=== PATIENT | male | born 1945 | race Caucasian/White ===

== ENCOUNTER 2017-07-16 11:26 | Observation (INO) | payer OTHER ==
[~2017-07-16] VITALS: Ht 172.7 cm; Wt 91.2 kg
--- NOTE | 2017-07-16 11:26 | NUR ---
PT TO ROOM FOR TREATMENT
--- NOTE | 2017-07-16 11:45 | NUR ---
IV INITATED AND LABS COLLECTED. MD AT BEDSIDE. PT REPORTS CHEST PRESSURE "FOR AWHILE NOW" IN THE MID TO LEFT CHEST AREA. PT DENIES ANY SOB, NAUSEA/VOIMITING AT THIS TIME. PT WAS SEEN IN [place] [facility] AND WAS TOLD HE HAS ANXIETY. PT HAS HAD NUMEROUS FAMILY MEMBERS PASS AWARE FROM CARDIAC ISSUES IN THE PAST 2 YEARS. PT TEARFUL IN ROOM AND KEEPS LOOKING AT MANAGER CULINARY NERVOUSLY. PT AWARE OF PLAN OF CARE AND WAIT TIME. LS CLEAR AND PT DENIES ANY PAIN AT THIS TIME. CALL LILLY WITHIN REACH. WILL CONTINUE TO MONITOR.
[2017-07-16 11:58] LABS: HEMATOCRIT 50.1 % (39.0-50.0); HEMOGLOBIN 17.3 g/dl (14.0-18.0); IMMATURE GRANULOCYTES 0.4 % (0.0-1.0); MEAN CELL VOLUME 85.9 fL CALC (80.0-100.0); MEAN CORPUSCULAR HGB 29.7 pG CALC (26.0-32.0); MEAN CORPUSCULAR HGB CONC 34.5 g/L CALC (32.0-36.0); NEUT# 7.39 thou/uL (1.82-7.42); RED BLOOD COUNT 5.83 mill/uL (4.70-6.10); RED CELL DISTRI WIDTH 13.5 % (11.5-15.5)
[2017-07-16] MEDS ORDERED: ASPIRIN81 MG PO (12:00)
[2017-07-16] MEDS ORDERED: LISINOPRIL/HYDR1 TA1 PO (12:01)
[2017-07-16] MEDS ORDERED: ATORVASTATIN CA10 MG PO (12:02)
[2017-07-16] MEDS ORDERED: AMLODIPINE5 MG PO (12:04)
[2017-07-16] MEDS ORDERED: MULTI VIT PO (12:05)
[2017-07-16] MEDS ORDERED: POTASSIMIN75 MG PO (12:05)
[2017-07-16] MEDS ORDERED: DIPHENHYDRAM25 MG PO (12:06)
[2017-07-16] MEDS ORDERED: FISH OIL1000 MG PO (12:06)
[2017-07-16 12:14] LABS: ALBUMIN 4.7 g/dL (3.2-5.0); ALKALINE PHOSPHATASE 77 u/l (38-126); ANION GAP 15 (6-22 (CALC)); BILIRUBIN, TOTAL 0.7 mg/dL (0.0-1.4); BUN 17 mg/dL (8-23); BUN/CREATININE RATIO 19 (12-20 (CALC)); CALCIUM 11.8 mg/dL (8.4-10.2); CARBON DIOXIDE 22 mmol/l (22-30); CHLORIDE 107 mmol/l (95-108); CREATININE 0.9 mg/dL (0.7-1.3); GFR > 60 ML/MIN (>=60 (CALC)); GFR FOR AFR.AMER. > 60 ML/MIN (>=60 (CALC)); GLUCOSE 113 mg/dL (82-115); POTASSIUM 3.6 mmol/l (3.5-5.1); SGOT/AST 44 u/l (19-48); SGPT/ALT 51 u/l (11-66); SODIUM 140 mmol/l (137-146); TOTAL PROTEIN 7.8 g/dL (6.3-8.2)
[2017-07-16 12:25] LABS: MYOGLOBIN 34 ng/mL (0 - 121)
--- NOTE | 2017-07-16 12:40 | NUR ---
PT RESTING COMFORTABLY IN STRETCHER IN NAD. VSS. PT DENIES ANY PAIN OR NEEDS AT THIS TIME. CALL VIJAYA MUNGUIA. WILL CONTINUE TO MONITOR.
--- NOTE | 2017-07-16 12:45 | NUR ---
AT [facility] TO DISCUSS RESULTS AND ADMISSION.
--- NOTE | 2017-07-16 12:59 | NUR ---
SBAR PRINTED TO FLOOR
--- NOTE | 2017-07-16 13:10 | NUR ---
REPORT CALLED TO LATOYA JUNG.
--- NOTE | 2017-07-16 13:24 | NUR ---
TO 278 VIA W/C. N/C AT THIS TIME
--- NOTE | 2017-07-16 13:24 | NUR ---
Admission Note Report Given to: LATOYA JUNG Transported by: X Wheelchair Stretcher Transported with: X Nurse Transporter X Patent IV O2 X [employer] Judge
--- NOTE | 2017-07-16 13:25 | NUR ---
FROM ER VIA WHEELCHAIR ACCOMPANIED BY ZOE KLEIN. AMBULATED TO BATHROOM WITH STEADY GAIT. RESPS EVEN AND UNLABORED ON ROOM AIR, TELE MONITOR IN PLACE. DENIES PAIN OR DISCOMFORT. ORIENTED TO ROOM AND CALL SYSTEM. SAFETY PRECAUTIONS REINFORCED. BED IN LOWEST POSITION WITH WHEELS LOCKED. CALL LIGHT WITHIN REACH. WILL CONTINUE TO MONITOR.
[2017-07-16 13:38] VITALS: BP 138/87
[2017-07-16 13:52] LABS: URINE BILIRUBIN - DIPSTICK NEGATIVE (NEGATIVE); URINE BLOOD DIPSTICK NEGATIVE (NEGATIVE); URINE COLOR YELLOW; URINE GLUCOSE - DIPSTICK NEGATIVE (NEGATIVE); URINE KETONE NEGATIVE (NEGATIVE); URINE LEUK ESTERASE NEGATIVE (NEGATIVE); URINE NITRITE - DIPSTICK NEGATIVE (Negative); URINE PROTEIN - DIPSTICK NEGATIVE (NEG-TRACE); URINE SPECIFIC GRAVITY 1.025; URINE UROBILINOGEN - DIPSTICK 0.2 E.U./dL (0.2)
[2017-07-16 13:56] LABS: URINE CLARITY CLEAR
--- NOTE | 2017-07-16 16:48 | NUR ---
RESTING IN SEMI FOWLERS, RESPS EVEN AND UNLABORED ON ROOM AIR, TELE MONITOR IN PLACE. MEDICATED WITH XANAX PO FOR C/O ANXIETY. CALL LIGHT WITHIN REACH. WILL CONTINUE TO MONITOR.
[2017-07-16 16:52] LABS: CHOLESTEROL HDL RATIO 3.6 (<4.4 (CALC))
--- NOTE | 2017-07-16 17:45 | NUR ---
DR FITCH IN TO SEE PT, NEW ORDERS RECEIVED.
[2017-07-16 18:30] VITALS: BP 139/79
--- NOTE | 2017-07-16 20:45 | NUR ---
PT RESTING IN SUPINE POSITION WITH EYES CLOSED;RESPIRATIONS EVEN AND UNLABORED ON RA;WOKE PT TO COMPLETE ASSESSMENT;PT VOICES NO COMPLAINTS OF PAIN OR DISCOMFORTS AT THIS TIME;TELE MONITOR IN PLACE;#20G TO LAC FLUSHED AND PATENT;SKIN INTACT;PEDAL PULSES STRONG ON PALPATION;PT DENIES ANY NEEDS AND IS EDUCATED TO CALL FOR ASSISTANCE IF NEEDED;CALL LIGHT IN REACH;WILL CONTINUE TO MONITOR
[2017-07-16 23:52] VITALS: BP 132/79
--- NOTE | 2017-07-17 00:35 | NUR ---
LAB AT BEDSIDE;PT VOICES NO COMPLAINTS OF PAIN OR DISCOMFORTS;RESPIRATIONS EVEN AND UNLABORED ON RA;TELE MONITOR IN PLACE;PT RE-EDUCATED TO CALL FOR ASSISTANCE IF NEEDED;CALL LIGHT IN REACH;WILL CONTINUE TO MONITOR
--- NOTE | 2017-07-17 05:20 | NUR ---
PT APPEARS TO BE SLEEPING IN SUPINE POSITION BUT WAKES EASILY;PT DENIES ANY PAIN OR DISCOMFORTS;RESPIRATIONS EVEN AND UNLABORED ON RA;TELE MONITOR IN PLACE;CALL LIGHT IN REACH;WILL CONTINUE TO MONITOR
[2017-07-17 05:25] VITALS: BP 141/85
[2017-07-17 06:49] LABS: ANION GAP 17 (6-22 (CALC)); BUN 15 mg/dL (8-23); BUN/CREATININE RATIO 14 (12-20 (CALC)); CALCIUM 10.2 mg/dL (8.4-10.2); CARBON DIOXIDE 25 mmol/l (22-30); CHLORIDE 104 mmol/l (95-108); GFR > 60 ML/MIN (>=60 (CALC)); GFR FOR AFR.AMER. > 60 ML/MIN (>=60 (CALC)); GLUCOSE 102 mg/dL (82-115); MAGNESIUM 1.8 mg/dL (1.6-2.3); POTASSIUM 3.6 mmol/l (3.5-5.1); SODIUM 142 mmol/l (137-146)
--- NOTE | 2017-07-17 07:00 | NUR ---
RECEIVED BEDSIDE REPORT FROM [facility]. AMBULATING TO BATHROOM WITH STEADY GAIT. RESPS EVEN AND UNLABORED ON ROOM AIR, TELE MONITOR IN PLACE. DENIES PAIN OR DISCOMFORT. PLAN OF CARE DISCUSSED. SAFETY PRECAUTIONS REINFORCED. BED IN LOWEST POSITION WITH WHEELS LOCKED. CALL LIGHT WITHIN REACH. ENCOURAGED PT TO CALL FOR ANY NEEDS.
[2017-07-17 07:41] VITALS: BP 138/85
--- NOTE | 2017-07-17 08:20 | NUR ---
RESTING IN SEMI FOWLERS. REFUSED TO EAT BREAKFAST. REPORTS HE "IS TOO BUSY WORRYING ABOUT HOW HE IS GOING TO PAY THIS BILL, STARTING TO MAKE HIS STOMACH UPSET." MEDICATED WITH XANAX PO ANXIETY. WILL CONTINUE TO MONITOR. CALL LIGHT WITHIN REACH.
--- NOTE | 2017-07-17 11:15 | NUR ---
DR FITCH IN WITH PT, NEW ORDERS RECEIVED.
[2017-07-17 11:30] VITALS: BP 130/77
[2017-07-17] MEDS ORDERED: LEXAPRO10 MG PO (11:37)
[2017-07-17] MEDS ORDERED: ALPRAZOLAM0.25 MG PO (11:37)
--- NOTE | 2017-07-17 12:30 | NUR ---
Discharge instructions given. Patient verbalizes understanding of same. Discharged in stable condition via Wheelchair to Home with friend. All belongings sent with pt.
[2017-07-17] MEDS ORDERED: CELEXA20 MG PO (21:26)
== END 2017-07-17 12:30 | disposition home or self-care (01) | DRG 310 ==
LOC: ED 11:26 → ED-I 12:38 → ED 12:57 → MS2 12:58
PROVIDERS: Emergency Medicine; Nurse Practitioner Family; ADMIT Internal Medicine; ATTEND Internal Medicine
DX: R00.2 Palpitations (principal); E78.5 Hyperlipidemia, unspecified; R07.9 Chest pain, unspecified; I10 Essential (primary) hypertension; K22.70 Barrett's esophagus without dysplasia; F32.9 Major depressive disorder, single episode, unspecified; Z63.4 Disappearance and death of family member

== ENCOUNTER 2019-02-06 17:29 | Emergency (ER) | payer OTHER ==
[~2019-02-06] VITALS: Ht 172.7 cm; Wt 91.0 kg
[~2019-02-06 17:29] MED LIST: ALPRAZOLAM0.25 MG PO; AMLODIPINE5 MG PO; ASPIRIN81 MG PO; ATORVASTATIN CA10 MG PO; CELEXA20 MG PO; DIPHENHYDRAM25 MG PO; FISH OIL1000 MG PO; LEXAPRO10 MG PO; LISINOPRIL/HYDR1 TA1 PO; MULTI VIT PO; POTASSIMIN75 MG PO
[2019-02-06 18:20] LABS: HEMATOCRIT 44.8 % (39.0-50.0); HEMOGLOBIN 15.4 g/dl (14.0-18.0); IMMATURE GRANULOCYTES 0.6 % (0.0-5.0); MEAN CELL VOLUME 84.7 fL CALC (80.0-100.0); MEAN CORPUSCULAR HGB 29.1 pG CALC (26.0-32.0); MEAN CORPUSCULAR HGB CONC 34.4 g/L CALC (32.0-36.0); NEUT# 10.16 thou/uL (1.82-7.42); RED BLOOD COUNT 5.29 mill/uL (4.70-6.10); RED CELL DISTRI WIDTH 14.5 % (11.5-15.5)
[2019-02-06 18:43] LABS: ALBUMIN 4.3 g/dL (3.2-5.0); ALKALINE PHOSPHATASE 112 u/l (38-126); BUN 18 mg/dL (8-23); BUN/CREATININE RATIO 17 (12-20 (CALC)); CARBON DIOXIDE 21 mmol/l (22-30); CHLORIDE 97 mmol/l (95-108); CREATININE 1.1 mg/dL (0.7-1.3); GFR > 60 ML/MIN (>=60 (CALC)); GFR FOR AFR.AMER. > 60 ML/MIN (>=60 (CALC)); LIPASE 41 u/l (23-300); POTASSIUM 4.1 mmol/l (3.5-5.1); TOTAL PROTEIN 8.1 g/dL (6.3-8.2)
[2019-02-06 18:48] LABS: ANION GAP 20 (6-22 (CALC)); BILIRUBIN, TOTAL 2.3 mg/dL (0.0-1.4); SGOT/AST 141 u/l (19-48); SODIUM 134 mmol/l (137-146)
[2019-02-06 19:24] LABS: URINE BILIRUBIN - DIPSTICK NEGATIVE (NEGATIVE); URINE BLOOD DIPSTICK NEGATIVE (NEGATIVE); URINE COLOR YELLOW; URINE GLUCOSE - DIPSTICK NEGATIVE (NEGATIVE); URINE KETONE NEGATIVE (NEGATIVE); URINE LEUK ESTERASE NEGATIVE (NEGATIVE); URINE NITRITE - DIPSTICK NEGATIVE (Negative); URINE PH 6.5 (4.5-8.0); URINE PROTEIN - DIPSTICK TRACE mg/dL (NEG-TRACE); URINE UROBILINOGEN - DIPSTICK 0.2 E.U./dL (0.2)
[2019-02-06 22:11] VITALS: BP 138/79
== END 2019-02-06 22:04 | disposition short-term general hospital (02) | DRG 392 ==
LOC: ED 17:29
PROVIDERS: Family Medicine
DX: R10.11 Right upper quadrant pain (principal); R10.12 Left upper quadrant pain; N13.2 Hydronephrosis with renal and ureteral calculous obstruction; K82.9 Disease of gallbladder, unspecified; I10 Essential (primary) hypertension
CPT/HCPCS: Q9967

== ENCOUNTER 2019-02-13 11:08 | Emergency (ER) | payer OTHER ==
[~2019-02-13] VITALS: Ht 172.7 cm; Wt 90.9 kg
[2019-02-13 11:46] LABS: HEMATOCRIT 39.3 % (39.0-50.0); IMMATURE GRANULOCYTES 4.7 % (0.0-5.0); MEAN CELL VOLUME 87.3 fL CALC (80.0-100.0); MEAN CORPUSCULAR HGB 28.9 pG CALC (26.0-32.0); MEAN CORPUSCULAR HGB CONC 33.1 g/L CALC (32.0-36.0); NEUT# 6.8 thou/uL (1.82-7.42); RED BLOOD COUNT 4.5 mill/uL (4.70-6.10); RED CELL DISTRI WIDTH 14.6 % (11.5-15.5)
[2019-02-13 11:58] LABS: ALKALINE PHOSPHATASE 159 u/l (38-126); ANION GAP 11 (6-22 (CALC)); BUN 12 mg/dL (8-23); BUN/CREATININE RATIO 19 (12-20 (CALC)); CARBON DIOXIDE 26 mmol/l (22-30); CHLORIDE 102 mmol/l (95-108); CREATININE 0.7 mg/dL (0.7-1.3); GFR > 60 ML/MIN (>=60 (CALC)); GFR FOR AFR.AMER. > 60 ML/MIN (>=60 (CALC)); LIPASE 231 u/l (23-300); POTASSIUM 4.2 mmol/l (3.5-5.1); SGOT/AST 88 u/l (19-48); SODIUM 135 mmol/l (137-146); TOTAL PROTEIN 5.8 g/dL (6.3-8.2)
[2019-02-13 12:22] LABS: URINE BILIRUBIN - DIPSTICK SMALL (NEGATIVE); URINE BLOOD DIPSTICK LARGE (NEGATIVE); URINE COLOR DK. YELLOW; URINE GLUCOSE - DIPSTICK NEGATIVE (NEGATIVE); URINE KETONE NEGATIVE (NEGATIVE); URINE LEUK ESTERASE TRACE (NEGATIVE); URINE NITRITE - DIPSTICK NEGATIVE (Negative); URINE PROTEIN - DIPSTICK 100 mg/dL (NEG-TRACE); URINE UROBILINOGEN - DIPSTICK 0.2 E.U./dL (0.2)
[2019-02-13 12:23] LABS: URINE BACTERIA FEW hpf; URINE EPITHELIAL CELLS MODERATE EPI/hpf (0-FEW); URINE MUCUS FEW hpf (NONE-FEW); URINE WBC 0-2 WBC/hpf (0-5)
[2019-02-13 14:29] VITALS: BP 140/62
== END 2019-02-13 14:30 | disposition short-term general hospital (02) | DRG 392 ==
LOC: ED 11:08
DX: K22.2 Esophageal obstruction (principal); I10 Essential (primary) hypertension; N20.0 Calculus of kidney; Z87.442 Personal history of urinary calculi; Z90.49 Acquired absence of other specified parts of digestive tract

== ENCOUNTER 2020-03-01 07:15 | Day surgery (SDC) | payer OTHER ==
[~2020-03-01] VITALS: Ht 172.7 cm; Wt 95.3 kg
[~2020-03-01 07:15] MED LIST changes: +LORCET HD 10-321 TAB PO; +MICRO-K10 MEQ PO; +NORVASC5 M1 PO; +PROTONIX40 M2 PO; +SG ASA LOW81 M1 PO; +TAMSULOSIN HCL0.4 MG PO; +VITAMIN C1000 MG PO
[2020-03-01] MEDS ORDERED: PERCOCET 5/325M1 TAB PO (09:21)
[2020-03-01 10:17] VITALS: BP 108/63
== END 2020-03-01 10:40 | disposition home or self-care (01) | DRG 355 ==
LOC: ORM 07:15
PROVIDERS: ATTEND Surgery
PROC: 0WUF0JZ Supplement Abdominal Wall with Synthetic Substitute, Open Approach (ICD-10-PCS; principal; 2020-03-01)
DX: K43.2 Incisional hernia without obstruction or gangrene (principal); I10 Essential (primary) hypertension; Z11.59 Encounter for screening for other viral diseases
CPT/HCPCS: J0131; J2710

== ENCOUNTER 2020-03-03 07:07 | Emergency (ER) | payer OTHER ==
[~2020-03-03] VITALS: Ht 172.7 cm; Wt 86.0 kg
[~2020-03-03 07:07] MED LIST changes: +PERCOCET 5/325M1 TAB PO
[2020-03-03 07:46] LABS: HEMATOCRIT 43.3 % (39.0-50.0); HEMOGLOBIN 14.1 g/dl (14.0-18.0); IMMATURE GRANULOCYTES 0.5 % (0.0-5.0); MEAN CORPUSCULAR HGB 28.7 pG CALC (26.0-32.0); MEAN CORPUSCULAR HGB CONC 32.6 g/dL CAL (32.0-36.0); NEUT# 6.08 thou/uL (1.82-7.42); RED BLOOD COUNT 4.92 mill/uL (4.70-6.10); RED CELL DISTRI WIDTH 13.8 % (11.5-15.5)
[2020-03-03 08:04] LABS: ALKALINE PHOSPHATASE 220 u/l (38-126); ANION GAP 12 (6-22 (CALC)); BUN 20 mg/dL (8-23); BUN/CREATININE RATIO 17 (12-20 (CALC)); CARBON DIOXIDE 26 mmol/l (22-30); CHLORIDE 98 mmol/l (95-108); CREATININE 1.2 mg/dL (0.7-1.3); GFR 59 ML/MIN (>=60 (CALC)); GFR FOR AFR.AMER. > 60 ML/MIN (>=60 (CALC)); POTASSIUM 3.5 mmol/l (3.5-5.1); SODIUM 131 mmol/l (137-146); TOTAL PROTEIN 6.6 g/dL (6.3-8.2)
[2020-03-03 08:09] LABS: ALBUMIN 3.9 g/dL (3.2-5.0); BILIRUBIN, TOTAL 2.9 mg/dL (0.0-1.4); SGOT/AST 379 u/l (19-48)
[2020-03-03 08:24] LABS: URINE BILIRUBIN - DIPSTICK NEGATIVE (NEGATIVE); URINE BLOOD DIPSTICK NEGATIVE (NEGATIVE); URINE COLOR YELLOW; URINE GLUCOSE - DIPSTICK NEGATIVE (NEGATIVE); URINE KETONE NEGATIVE (NEGATIVE); URINE LEUK ESTERASE NEGATIVE (NEGATIVE); URINE NITRITE - DIPSTICK NEGATIVE (Negative); URINE PH 5.5 (4.5-8.0); URINE PROTEIN - DIPSTICK NEGATIVE (NEG-TRACE); URINE SPECIFIC GRAVITY 1.025; URINE UROBILINOGEN - DIPSTICK 0.2 E.U./dL (0.2)
[2020-03-03 08:52] LABS: AMYLASE 67 u/l (30-110); LIPASE 65 u/l (23-300)
[2020-03-03] MEDS ORDERED: MIRALAX3350 N1 PO (11:20)
[2020-03-03 12:10] VITALS: BP 143/76
== END 2020-03-03 12:10 | disposition home or self-care (01) | DRG 696 ==
LOC: ED 07:07
PROVIDERS: Emergency Medicine
PROC: 0T9B70Z Drainage of Bladder with Drainage Device, Via Natural or Artificial Opening (ICD-10-PCS; principal; 2020-03-03)
DX: R33.9 Retention of urine, unspecified (principal); K59.00 Constipation, unspecified; R74.8 Abnormal levels of other serum enzymes; I10 Essential (primary) hypertension; Z98.890 Other specified postprocedural states
CPT/HCPCS: Q9967

== ENCOUNTER 2020-03-05 09:58 | Emergency (ER) | payer OTHER ==
[~2020-03-05] VITALS: Ht 172.7 cm; Wt 95.5 kg
[~2020-03-05 09:58] MED LIST changes: +MIRALAX3350 N1 PO
[2020-03-05 10:57] LABS: URINE BILIRUBIN - DIPSTICK NEGATIVE (NEGATIVE); URINE BLOOD DIPSTICK TRACE-INTACT (NEGATIVE); URINE COLOR YELLOW; URINE GLUCOSE - DIPSTICK NEGATIVE (NEGATIVE); URINE KETONE NEGATIVE (NEGATIVE); URINE LEUK ESTERASE NEGATIVE (NEGATIVE); URINE NITRITE - DIPSTICK NEGATIVE (Negative); URINE PH 7.5 (4.5-8.0); URINE PROTEIN - DIPSTICK NEGATIVE (NEG-TRACE); URINE SPECIFIC GRAVITY 1.015; URINE UROBILINOGEN - DIPSTICK 0.2 E.U./dL (0.2)
[2020-03-05 11:21] LABS: HEMATOCRIT 42.1 % (39.0-50.0); HEMOGLOBIN 13.6 g/dl (14.0-18.0); IMMATURE GRANULOCYTES 0.6 % (0.0-5.0); MEAN CELL VOLUME 88.3 fL CALC (80.0-100.0); MEAN CORPUSCULAR HGB 28.5 pG CALC (26.0-32.0); MEAN CORPUSCULAR HGB CONC 32.3 g/dL CAL (32.0-36.0); NEUT# 6.52 thou/uL (1.82-7.42); RED BLOOD COUNT 4.77 mill/uL (4.70-6.10); RED CELL DISTRI WIDTH 14.1 % (11.5-15.5)
[2020-03-05 11:49] LABS: ALBUMIN 3.6 g/dL (3.2-5.0); ALKALINE PHOSPHATASE 169 u/l (38-126); ANION GAP 10 (6-22 (CALC)); BUN 18 mg/dL (8-23); BUN/CREATININE RATIO 18 (12-20 (CALC)); CARBON DIOXIDE 26 mmol/l (22-30); CHLORIDE 102 mmol/l (95-108); GFR > 60 ML/MIN (>=60 (CALC)); GFR FOR AFR.AMER. > 60 ML/MIN (>=60 (CALC)); LIPASE 63 u/l (23-300); POTASSIUM 3.9 mmol/l (3.5-5.1); SODIUM 135 mmol/l (137-146); TOTAL PROTEIN 6.2 g/dL (6.3-8.2)
[2020-03-05 11:50] LABS: BILIRUBIN, TOTAL 0.7 mg/dL (0.0-1.4); SGOT/AST 60 u/l (19-48)
[2020-03-05 12:24] VITALS: BP 126/71
== END 2020-03-05 12:20 | disposition home or self-care (01) | DRG 700 ==
LOC: ED 09:58
PROC: 0T2BX0Z Change Drainage Device in Bladder, External Approach (ICD-10-PCS; principal; 2020-03-05)
DX: T83.098A Other mechanical complication of other urinary catheter, initial encounter (principal); R33.9 Retention of urine, unspecified; K59.00 Constipation, unspecified; I10 Essential (primary) hypertension; Y84.6 Urinary catheterization as the cause of abnormal reaction of the patient, or of later complication, without mention of misadventure at the time of the procedure; Z98.890 Other specified postprocedural states

== ENCOUNTER 2020-03-06 16:32 | Emergency (ER) | payer OTHER ==
[~2020-03-06] VITALS: Ht 172.7 cm; Wt 95.0 kg
[2020-03-06 17:13] VITALS: BP 132/78
== END 2020-03-06 17:15 | disposition home or self-care (01) | DRG 700 ==
LOC: ED 16:32
DX: T83.028A Displacement of other urinary catheter, initial encounter (principal); I10 Essential (primary) hypertension; R33.9 Retention of urine, unspecified; Y84.6 Urinary catheterization as the cause of abnormal reaction of the patient, or of later complication, without mention of misadventure at the time of the procedure